=== PATIENT | female | born 1990 | race African-American/Black ===

== ENCOUNTER 2023-08-26 15:45 | Inpatient (IN) | payer OTHER, MEDICAID ==
[~2023-08-26] VITALS: Ht 162.6 cm; Wt 63.4 kg
[2023-08-26 16:58] LABS: Basophils # (auto) 0.1 10 ^3/uL (0-0.2); Eosinophils # (auto) 0 10 ^3/uL (0-0.8); Hemoglobin 7.7 g/dL (12.2-16.2); Monocytes # (auto) 0.4 10 ^3/uL (0-1.3)
[2023-08-26 16:59] LABS: Basophils % (auto) 1.7 % (0.0-2.0); Eosinophils % (auto) 0.3 % (0.0-7.0); Hematocrit 26.6 % (36.0-46.0); Lymphocytes % (auto) 13.8 % (10.0-50.0); Mean Corpuscular Hemoglobin 16.8 pg (28.0-32.0); Mean Corpuscular Hgb Conc. 28.8 g/dL (32.0-36.0); Mean Corpuscular Volume 58.1 fL (80.0-100.0); Monocytes % (auto) 4.7 % (0.0-12.0); Neutrophils % (auto) 79.5 % (37.0-80.0); Red Blood Cells 4.57 10^6/uL (4.0-5.20); White Blood Cell 7.5 10^3/uL (4.4-10.8)
[2023-08-26 17:08] LABS: Chloride 109 mmol/L (98-107); Potassium 4.2 mmol/L (3.5-5.1); Sodium 137 mmol/L (136-145)
[2023-08-26 17:09] LABS: Anion Gap 6 (5-15); Calcium 9.5 mg/dL (8.7-10.4); Carbon Dioxide 22 mmol/L (20-30)
[2023-08-26 17:14] LABS: BUN/Creatinine Ratio 14.5 (10.0-20.0); Blood Urea Nitrogen 12 mg/dL (9-23); Glucose 98 mg/dL (74-106)
[2023-08-26 17:44] LABS: Anisocytosis Slight; Hypochromia Marked; Platelet Estimate Adequate
[2023-08-26 17:45] LABS: Ovalocytes FEW
[2023-08-26] MEDS: SODIUM CHLORIDE 0.9% 1,000 ML IVB ONE (18:40)
[2023-08-26] MEDS ORDERED: HYDROcodone-ACET 5/325MG TAB PO PRN (22:45)
[2023-08-26] MEDS ORDERED: ACETAMINOPHEN 325 MG TAB PO PRN (22:45)
[2023-08-26] MEDS: SODIUM CHLORIDE 0.9% 1,000 ML IV SCH (22:45)
[2023-08-26] MEDS ORDERED: DOCUSATE SOD 100 MG CAP PO PRN (22:45)
[2023-08-26] MEDS ORDERED: ONDANSETRON HCL 4 MG/2 ML VIAL IV PRN (22:45)
[2023-08-27] VITALS (11 sets, daily range): BP systolic 94–119; BP diastolic 53–70; PULSE 51–74; RESP 10–19; TEMP 97.5–99; O2SAT 99–100
[2023-08-27] MEDS ORDERED: NITROGLYCERIN 0.4 MG SL TAB SL PRN
[2023-08-27] MEDS ORDERED: MORPHINE SULFATE INJ 2 MG/ml SYRG IV PRN
[2023-08-27 07:28] LABS: Monocytes # (auto) 0.4 10 ^3/uL (0-1.3)
[2023-08-27 07:32] LABS: Basophils # (auto) 0 10 ^3/uL (0-0.2); Basophils % (auto) 0.9 % (0.0-2.0); Eosinophils # (auto) 0 10 ^3/uL (0-0.8); Hematocrit 27.1 % (36.0-46.0); Hemoglobin 8.3 g/dL (12.2-16.2); Lymphocytes # (auto) 1.5 10 ^3/uL (0.4-5.4); Lymphocytes % (auto) 32.8 % (10.0-50.0); Mean Corpuscular Hemoglobin 18.6 pg (28.0-32.0); Mean Corpuscular Hgb Conc. 30.6 g/dL (32.0-36.0); Mean Corpuscular Volume 60.7 fL (80.0-100.0); Monocytes % (auto) 8.4 % (0.0-12.0); Neutrophils # (auto) 2.6 10 ^3/uL (1.6-8.6); Neutrophils % (auto) 56.9 % (37.0-80.0); Red Blood Cells 4.46 10^6/uL (4.0-5.20); White Blood Cell 4.6 10^3/uL (4.4-10.8)
[2023-08-27 07:35] LABS: Red Cell Distribution Width 22.2 % (11.8-14.3)
[2023-08-27 07:55] LABS: Albumin 3.9 g/dL (3.2-4.8); Alkaline Phosphatase 58 U/L (46-116); Anion Gap 6 (5-15); Aspartate Aminotransferase 16 U/L (13-40); BUN/Creatinine Ratio 13.5 (10.0-20.0); Bilirubin, Total 1.9 mg/dL (0.2-1.0); Blood Urea Nitrogen 10 mg/dL (9-23); Calcium 9.1 mg/dL (8.7-10.4); Carbon Dioxide 24 mmol/L (20-30); Chloride 108 mmol/L (98-107); Glucose 89 mg/dL (74-106); Potassium 3.6 mmol/L (3.5-5.1); Sodium 138 mmol/L (136-145)
[2023-08-27 07:56] LABS: Alanine Aminotransferase 9 U/L (7-40); Total Protein 6.9 g/dL (5.7-8.2)
[2023-08-27] MEDS: MULTIPLE VITAMIN TAB PO SCH (09:44)
[2023-08-28 01:34] VITALS: BP 104/52; PULSE 58; RESP 18; TEMP 98.8; O2SAT 99
[2023-08-28 05:29] VITALS: BP 109/63; PULSE 68; RESP 18; TEMP 98.2; O2SAT 100
[2023-08-28 05:46] LABS: Basophils # (auto) 0.1 10 ^3/uL (0-0.2); Monocytes # (auto) 0.3 10 ^3/uL (0-1.3); Neutrophils # (auto) 1.6 10 ^3/uL (1.6-8.6)
[2023-08-28 05:50] LABS: Basophils % (auto) 1.5 % (0.0-2.0); Eosinophils # (auto) 0.2 10 ^3/uL (0-0.8); Hematocrit 26.6 % (36.0-46.0); Hemoglobin 8.1 g/dL (12.2-16.2); Lymphocytes # (auto) 1.7 10 ^3/uL (0.4-5.4); Lymphocytes % (auto) 45.2 % (10.0-50.0); Mean Corpuscular Hemoglobin 18.5 pg (28.0-32.0); Mean Corpuscular Hgb Conc. 30.5 g/dL (32.0-36.0); Mean Corpuscular Volume 60.6 fL (80.0-100.0); Monocytes % (auto) 8.9 % (0.0-12.0); Neutrophils % (auto) 40.4 % (37.0-80.0); Nucleated Red Blood Cells % 0.1 %; White Blood Cell 3.9 10^3/uL (4.4-10.8)
[2023-08-28 06:01] LABS: Chloride 110 mmol/L (98-107); Potassium 3.8 mmol/L (3.5-5.1); Sodium 139 mmol/L (136-145)
[2023-08-28 06:02] LABS: Anion Gap 5 (5-15); Carbon Dioxide 24 mmol/L (20-30)
[2023-08-28 06:07] LABS: Glucose 89 mg/dL (74-106)
[2023-08-28 06:08] LABS: BUN/Creatinine Ratio 12.7 (10.0-20.0); Blood Urea Nitrogen 9 mg/dL (9-23); Red Cell Distribution Width 22.2 % (11.8-14.3)
[2023-08-28 08:00] VITALS: PULSE 59; PULSE 66; RESP 15
[2023-08-28 08:41] LABS: Urine Bacteria FEW /hpf (None Seen); Urine Blood 1+ /uL (Negative); Urine Clarity Clear (Clear); Urine Color Straw (Yellow); Urine Protein, UAD Negative (Negative); Urine Specific Gravity 1.011 (1.001-1.035); Urine Urobilinogen Normal (Negative); Urine WBC <1 /hpf (0 - 5)
[2023-08-28 09:00] VITALS: BP 109/59; PULSE 66; RESP 16; TEMP 98; O2SAT 100
[2023-08-28 13:00] VITALS: BP 106/54; PULSE 59; RESP 15; TEMP 98.1; O2SAT 100
[2023-08-28 13:23] VITALS: BP 106/54; PULSE 59; RESP 15; TEMP 98.1; O2SAT 100
== END 2023-08-28 17:14 | disposition home or self-care (01) | DRG 812 ==
LOC: EDBD 15:45 → ER 15:45 → TELE 23:48 → TELE-CENTR 08-27 05:05
PROVIDERS: ADMIT Nurse Practitioner Family; ATTEND Internal Medicine Pulmonary Disease
PROC: 30233N1 Transfusion of Nonautologous Red Blood Cells into Peripheral Vein, Percutaneous Approach (ICD-10-PCS; principal; 2023-08-27)
DX: D57.00 Hb-SS disease with crisis, unspecified (principal); R42 Dizziness and giddiness; R55 Syncope and collapse
CPT/HCPCS: 36415; 36430; 70450; 80048; 80053; 81001; 84702; 85025; 86850; 86900; 86901; 86920; 97110; 97116; 97163; 97530; G0378